=== PATIENT | male | born 1970 | race Caucasian/White ===

== ENCOUNTER 2018-12-21 01:22 | Emergency (ER) | payer BC ==
[~2018-12-21] VITALS: Ht 198.1 cm; Wt 179.6 kg
[~2018-12-21 01:22] MED LIST: CLEOCIN HCL150 MG; NORCO 5-325 TA1 EAC1 PO
[2018-12-21 01:43] LABS: ABSOLUTE EOSINOPHILS 0.2 thou/uL (0.0-0.7); ABSOLUTE LYMPHOCYTES 2.8 thou/uL (0.8-5.3); ABSOLUTE MONOCYTES 0.8 thou/uL (0.0-1.2); ABSOLUTE NEUTROPHILS 5.1 thou/uL (1.6-8.1); BASOPHILS 0.5 %; EOSINOPHILS 1.9 %; HEMATOCRIT 45.8 % (42.0-52.0); HEMOGLOBIN 15.7 gm/dL (14.0-18.0); LYMPHOCYTES 31.3 %; MCH 30.8 pg (26.0-34.0); MCHC 34.3 g/dL (28.0-37.0); MCV 89.8 fL (80.0-100.0); MONOCYTES 8.8 %; MPV 7.4 fl. (7.2-11.1); NUCLEATED RBCS 0 /100WBC; PLATELET COUNT* 223 thou/uL (150-400); POLYS 57.5 %; RBC 5.09 mil/uL (4.50-6.00); RDW-CV 13.8 % (10.5-14.5); WBC 8.8 thou/uL (4.0-11.0)
[2018-12-21 01:58] LABS: ANION GAP 8 mmol/L (7-16); BUN 17 mg/dL (7-18); CHLORIDE 102 mmol/L (98-107); CO2 30 mmol/L (21-32); CREATININE 1.2 mg/dL (0.6-1.3); GLUCOSE 129 mg/dL (70-99); POTASSIUM 3.6 mmol/L (3.5-5.1); SODIUM 140 mmol/L (136-145)
[2018-12-21 02:10] LABS: ALBUMIN 3.6 g/dL (3.4-5.0); ALKALINE PHOSPHATASE 91 U/L (46-116); SGOT 23 U/L (15-37); SGPT 38 U/L (30-65); TOTAL BILIRUBIN 0.6 mg/dL (<0.1-1.0); TOTAL PROTEIN 7.2 g/dL (6.4-8.2); TROPONIN-I LEVEL <0.06 ng/mL (<0.06)
[2018-12-21 03:04] LABS: PROTIME 9.8 Seconds (9.20-11.50)
[2018-12-21] MEDS ORDERED: KEFLEX500 M1 PO (04:10)
[2018-12-21 04:15] VITALS: BP 153/99
--- NOTE | 2018-12-21 11:07 | EKG ---
[place] [address] ELECTROCARDIOGRAM REPORT Name: LIANA LYNCH Room: 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
== END 2018-12-21 04:15 | disposition home or self-care (01) ==
LOC: M.ERS 01:22
PROVIDERS: Personal Emergency Response Attendant
DX: R00.2 Palpitations (principal); R60.0 Localized edema; Z88.0 Allergy status to penicillin; Z90.89 Acquired absence of other organs; Z98.52 Vasectomy status; Z90.49 Acquired absence of other specified parts of digestive tract

== ENCOUNTER 2019-02-11 16:02 | Inpatient (IN) | payer BC ==
[~2019-02-11] VITALS: Ht 198.1 cm; Wt 178.3 kg
[~2019-02-11 16:02] MED LIST changes: +KEFLEX500 M1 PO
[2019-02-11 16:07] VITALS: BP 166/105
[2019-02-11] MEDS ORDERED: LUTEIN 15 MG S1 EACH PO (16:11)
[2019-02-11] MEDS ORDERED: SUPER THERAVIT1 EACH PO (16:11)
[2019-02-11] MEDS ORDERED: PRILOSEC10 MG PO (16:11)
[2019-02-11] MEDS ORDERED: ALLEGRA ALLERG180 MG PO (16:11)
[2019-02-11 16:22] LABS: ABSOLUTE BASOPHILS 0.1 thou/uL (0.0-0.2); ABSOLUTE LYMPHOCYTES 1.7 thou/uL (0.8-5.3); ABSOLUTE MONOCYTES 0.7 thou/uL (0.0-1.2); ABSOLUTE NEUTROPHILS 7.3 thou/uL (1.6-8.1); BASOPHILS 0.6 %; EOSINOPHILS 0.5 %; HEMATOCRIT 46.6 % (42.0-52.0); HEMOGLOBIN 16.2 gm/dL (14.0-18.0); LYMPHOCYTES 17.1 %; MCH 30.4 pg (26.0-34.0); MCHC 34.8 g/dL (28.0-37.0); MCV 87.5 fL (80.0-100.0); MONOCYTES 7.5 %; MPV 7.3 fl. (7.2-11.1); NUCLEATED RBCS 0 /100WBC; PLATELET COUNT* 223 thou/uL (150-400); POLYS 74.3 %; RBC 5.32 mil/uL (4.50-6.00); RDW-CV 13.5 % (10.5-14.5); WBC 9.8 thou/uL (4.0-11.0)
[2019-02-11 16:30] LABS: CALCIUM 9.9 mg/dL (8.5-10.1); CREATININE 1.1 mg/dL (0.6-1.3); POTASSIUM 4.2 mmol/L (3.5-5.1)
[2019-02-11 16:34] LABS: APTT 32.4 Seconds (25.0-31.3); PROTIME 10.3 Seconds (9.20-11.50)
[2019-02-11 16:42] LABS: TOTAL PROTEIN 7.8 g/dL (6.4-8.2)
[2019-02-11 18:29] VITALS: BP 136/73
--- NOTE | 2019-02-11 19:30 | NUR ---
PT ARRIVED TO UNIT AT APPROX 1840, A&O X4, BOWL SANDER TRACING SINUS RHYTHM, LS CTA, RA, BS HYPERAVTIVE X4, DENIES ANY PAIN/SOA, FULL ASSESSMENT CHARTED. CHILDREN AT BEDSIDE, PT ORIENTED TO CALL LIGHT AND ROOM.
[2019-02-11 20:04] VITALS: BP 151/89
[2019-02-12] VITALS: BP 131/80
[2019-02-12 04:00] VITALS: BP 125/78
--- NOTE | 2019-02-12 04:55 | NUR ---
ASSUMED CARE OF PT 02/11/19 APPROX 1930. PT REMAINED A&OX4 THROUGHOUT SHIFT, PT UP AD TYRA, PT SR ON TELE MONITOR, PT REPORTED TEMPORARY TINGLING AND CHEST DISCOMFORT FOLLOWING TO TOILETING - PT STATED HE FELT ALL HIS SYMPTOMS MAY BE D/T STRESS. EKG ORDERED PER PROTOCOL AND PHYSICIAN CONTACTED, ORDER FOR XANAX GIVEN AND ADMINISTERED. PT SLEPT WELL FOLLOWING XANAX ADMINISTRATION. WILL CONTINUE TO MONITOR.
--- NOTE | 2019-02-12 07:20 | NUR ---
CHANGE OF SHIFT BEDSIDE REPORT GIVEN PATIENT SEEN AT BEDSIDE, IN BED RESTING ASSUMED PATIENT CARE
[2019-02-12 08:00] VITALS: BP 139/88
[2019-02-12 08:53] LABS: URINE BILIRUBIN NEGATIVE (Negative); URINE BLOOD TRACE (Negative); URINE CLARITY CLEAR; URINE COLOR YELLOW; URINE GLUCOSE-RANDOM NEGATIVE (Negative); URINE KETONES NEGATIVE (Negative); URINE LEUKOCYTES-REFLEX NEGATIVE (Negative); URINE NITRITE-REFLEX NEGATIVE (Negative); URINE PROTEIN NEGATIVE (Negative)
[2019-02-12 09:03] LABS: AMP/METHAMP Negative (Negative); BARBITURATES Negative (Negative); BENZODIAZEPINES Negative (Negative); COCAINE Negative (Negative); METHADONE Negative (Negative); OPIATES Negative (Negative); PCP Negative (Negative); THC Negative (Negative)
--- NOTE | 2019-02-12 11:13 | EKG ---
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 : 1970 Requested By: Marcial Cummings Order Number: [id number] MD: George Blackmon Measurements Intervals [place] Rate: 86 P: 34 [place]: 165 QRS: -23 QRSD: 99 T: 17 QT: 380 QTc: 455 Interpretive Statements Sinus rhythm Probable left atrial enlargement Borderline left axis deviation RSR' in V1 or V2, probably normal variant Compared to ECG 12/21/2018 01:30:15 no change Electronically Signed On 02-12-2019 11:13:19 CDT by George Blackmon [email or web address] <ELECTRONICALLY SIGNED> By: George Blackmon MD, FACC 02/12/19 1113 1608 1608 George Blackmon MD, [facility] /EPI
[2019-02-12] MEDS ORDERED: ALPRAZOLAM0.5 M2 PO (11:37)
[2019-02-12] MEDS ORDERED: FLONASE 0.05%50 MCG NASAL (11:37)
[2019-02-12] MEDS ORDERED: SINGULAIR 10 MG10 M1 PO (11:37)
[2019-02-12 13:29] VITALS: BP 139/88
--- NOTE | 2019-02-12 13:50 | NUR ---
PATIENT DISCHARGED TO HOME ALL DC INFORMATION GIVEN, ACKNOWLEDGED, SIGNED COPIES GIVEN IV AND HEART MONITOR REMOVED PERSONAL BELONGINGS RETURNED ESCORTED OUT AMBULATORY TO [facility]
--- NOTE | 2019-02-12 16:50 | EKG ---
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
--- NOTE | 2019-02-12 16:54 | EKG ---
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
== END 2019-02-12 14:27 | disposition home or self-care (01) | DRG 305 ==
LOC: M.ERS 16:02 → M.2W 17:02 → M.TBA-ER 17:02 → M.2W 18:40
PROVIDERS: Family Medicine; ADMIT Family Medicine
DX: I16.0 Hypertensive urgency (principal); Z68.42 Body mass index [BMI] 45.0-49.9, adult; K21.9 Gastro-esophageal reflux disease without esophagitis; F41.9 Anxiety disorder, unspecified; E66.9 Obesity, unspecified; Z90.49 Acquired absence of other specified parts of digestive tract; Z88.0 Allergy status to penicillin; Z28.21 Immunization not carried out because of patient refusal

== ENCOUNTER 2021-02-06 10:20 | Emergency (ER) | payer OTHER ==
[~2021-02-06] VITALS: Ht 198.1 cm; Wt 176.9 kg
[~2021-02-06 10:20] MED LIST changes: +ALLEGRA ALLERG180 MG PO; +ALPRAZOLAM0.5 M2 PO; +FLONASE 0.05%50 MCG NASAL; +LUTEIN 15 MG S1 EACH PO; +PRILOSEC10 MG PO; +SINGULAIR 10 MG10 M1 PO; +SUPER THERAVIT1 EACH PO
[2021-02-06] MEDS ORDERED: SINGULAIR 10 MG10 M1 PO (10:31)
[2021-02-06] MEDS ORDERED: FLONASE 0.05%50 MCG NARES (10:31)
[2021-02-06] MEDS ORDERED: ALLEGRA ALLERG180 MG PO (10:31)
[2021-02-06 11:24] LABS: ABSOLUTE BASOPHILS 0.1 thou/uL (0.0-0.2); ABSOLUTE EOSINOPHILS 0.1 thou/uL (0.0-0.7); ABSOLUTE LYMPHOCYTES 1.4 thou/uL (0.8-5.3); ABSOLUTE MONOCYTES 0.7 thou/uL (0.0-1.2); ABSOLUTE NEUTROPHILS 6.6 thou/uL (1.6-8.1); BASOPHILS 0.6 %; EOSINOPHILS 0.8 %; HEMATOCRIT 46.7 % (42.0-52.0); HEMOGLOBIN 15.9 gm/dL (14.0-18.0); LYMPHOCYTES 15.6 %; MCH 29.9 pg (26.0-34.0); MCHC 34.1 g/dL (28.0-37.0); MCV 87.5 fL (80.0-100.0); MONOCYTES 7.9 %; MPV 7.2 fl. (7.2-11.1); NUCLEATED RBCS 0 /100WBC; PLATELET COUNT* 230 thou/uL (150-400); POLYS 75.1 %; RBC 5.33 mil/uL (4.50-6.00); RDW-CV 13.8 % (10.5-14.5); WBC 8.8 thou/uL (4.0-11.0)
[2021-02-06 11:34] LABS: CREATININE 1.2 mg/dL (0.6-1.3); POTASSIUM 3.8 mmol/L (3.5-5.1)
[2021-02-06 11:39] LABS: ALBUMIN 3.7 g/dL (3.4-5.0); TOTAL BILIRUBIN 0.5 mg/dL (<0.1-1.0); TOTAL PROTEIN 7.5 g/dL (6.4-8.2)
[2021-02-06 12:20] VITALS: BP 159/87
--- NOTE | 2021-02-07 12:47 | EKG ---
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: : 1970 Requested By: Marcial Cummings Order Number: [id number] MD: Raleigh Valdes Measurements Intervals [place] Rate: 82 P: 41 [place]: 172 QRS: 4 QRSD: 102 T: 28 QT: 385 QTc: 450 Interpretive Statements Sinus rhythm Baseline wander in lead(s) V2 Compared to ECG 02/12/2019 10:35:30 No significant changes Electronically Signed On 02-07-2021 12:47:06 CDT by Raleigh Valdes [email or web address] <ELECTRONICALLY SIGNED> By: Raleigh Valdes MD, [facility] 02/07/21 1247 1100 1100 Raleigh Valdes MD, [facility] /EPI
== END 2021-02-06 12:24 | disposition home or self-care (01) ==
LOC: M.ERS 10:20
PROVIDERS: Family Medicine
DX: R20.2 Paresthesia of skin (principal); R20.0 Anesthesia of skin; H53.8 Other visual disturbances; Z90.89 Acquired absence of other organs; Z98.890 Other specified postprocedural states; Z90.49 Acquired absence of other specified parts of digestive tract; Z79.899 Other long term (current) drug therapy; Z91.041 Radiographic dye allergy status; Z88.0 Allergy status to penicillin